=== PATIENT | male | born 1940 | race Caucasian/White ===

== ENCOUNTER 2021-02-06 10:46 | Emergency (ER) | payer MEDICARE, BC ==
[2021-02-06 13:34] LABS: ALT (SGPT) 15 U/L (8-55); AST (SGOT) 13 U/L (5-34); Albumin 3.7 g/dL (3.4-4.8); Alkaline Phosphatase 116 U/L (40-110); Anion Gap 11 mmol/L (10-20); BUN (Urea Nitrogen) 26 mg/dL (8.4-25.7); Bilirubin, Total 0.5 mg/dL (0.2-1.2); Calc. Creatinine Clearance 0 mL/min (70-130); Calcium 8.7 mg/dL (7.8-10.44); Carbon Dioxide 27 mmol/L (23-31); Chloride 108 mmol/L (98-107); Globulin 2.2 g/dL (2.4-3.5); Glucose 95 mg/dL (83-110); Potassium 4.9 mmol/L (3.5-5.1); Protein, Total 5.9 g/dL (5.8-8.1); Sodium 141 mmol/L (136-145)
[2021-02-06 13:44] LABS: #Eosinphils 0.5 10x3/uL (0.0-0.5); #Monocytes 0.4 10x3/uL (0.0-1.1); #Neutrophils 3.7 10x3/uL (1.5-8.4); %Basophils 0.5 % (0.0-2.0); %Eosinophils 8.1 % (0.0-6.0); %Lymphocytes 20.5 % (18.0-47.0); %Monocytes 7.4 % (0.0-10.0); %Neutrophils 63.2 % (40.0-75.0); Mean Corpuscular HGB CONC 32.3 g/dL (32.0-36.0); Mean Corpuscular Hemoglobin 31.2 pg (27.0-33.0); Mean Corpuscular Volume 96.4 fl (81.2-95.1); Mean Platelet Volume 10.6 fl (7.4-10.4); Platelet Count 132 10x3/uL (150-450); RBC Distribution Width 12.8 % (11.5-14.5); Red Blood Cell (RBC) Count 3.85 10x6/uL (4.32-5.72); White Blood Cell (WBC) Count 5.8 10x3/uL (3.5-10.5)
[2021-02-06 14:17] LABS: Bilirubin Neg (Negative); Blood, Urine Negative (Negative); Clarity Clear (Clear); Glucose, Urine (Dipstick) Normal (Negative); Ketone, Urine Negative (Negative); Leukocyte Negative (Negative); Nitrite Negative (Negative); Protein, Urine (Dipstick) Negative (Neg-Trace); Specific Gravity, Urine 1.015 (1.002-1.036); Urobilinogen Normal mg/dL (Less than 2)
== END 2021-02-06 14:41 | disposition home or self-care (01) ==
LOC: CSHERS 10:46
DX: R41.82 Altered mental status, unspecified (principal)
CPT/HCPCS: 36415; 70450; 71045; 80053; 81003; 84484; 85025; 93005

== ENCOUNTER 2024-09-15 12:47 | Emergency (ER) | payer OTHER, MEDICARE, BC ==
[2024-09-15] MEDS ORDERED: Acetaminophen 325 MG TAB ONE (13:39)
== END 2024-09-15 15:00 | disposition home or self-care (01) ==
LOC: CSHERS 12:47
DX: M54.2 Cervicalgia (principal); M54.50 Low back pain, unspecified; V49.9XXA Car occupant (driver) (passenger) injured in unspecified traffic accident, initial encounter
CPT/HCPCS: 70450; 72125; 72131